=== PATIENT | female | born 1995 | race African-American/Black ===

== ENCOUNTER 2021-04-01 23:25 | Emergency (ER) | payer OTHER ==
[~2021-04-01] VITALS: Ht 157.5 cm; Wt 60.0 kg
[2021-04-02 00:15] VITALS: BP 105/79
== END 2021-04-02 00:30 | disposition left against medical advice (07) ==
LOC: ER 23:25
DX: R10.30 Lower abdominal pain, unspecified (principal)
CPT/HCPCS: 99281